=== PATIENT | male | born 1955 | race Caucasian/White ===

== ENCOUNTER 2021-10-02 08:24 | Day surgery (SDC) | payer MEDICAID ==
[~2021-10-02] VITALS: Ht 182.9 cm; Wt 85.0 kg
[2021-10-02 08:38] VITALS: BP 170/112
[2021-10-02] MEDS ORDERED: VITAMIN C PO (08:40)
[2021-10-02] MEDS ORDERED: CALCIUM PO (08:41)
[2021-10-02] MEDS ORDERED: MAGNESIUM PO (08:42)
[2021-10-02] MEDS ORDERED: fentaNYL/PF 50MCG/1 ML 2ML syringe ONE (08:46)
[2021-10-02] MEDS ORDERED: MIDAZolam 1 MG/ML 5ML VIAL ONE (08:46)
[2021-10-02 10:21] VITALS: BP 134/87
[2021-10-02 10:31] VITALS: BP 130/87
[2021-10-02 10:41] VITALS: BP 129/82
[2021-10-02 10:51] VITALS: BP 131/79
== END 2021-10-02 11:15 | disposition home or self-care (01) ==
LOC: GI LAB 08:24
PROVIDERS: ATTEND Internal Medicine Gastroenterology
DX: R19.5 Other fecal abnormalities (principal); D12.3 Benign neoplasm of transverse colon; D12.4 Benign neoplasm of descending colon; D12.8 Benign neoplasm of rectum; K57.30 Diverticulosis of large intestine without perforation or abscess without bleeding; K64.8 Other hemorrhoids; F17.290 Nicotine dependence, other tobacco product, uncomplicated; Z72.89 Other problems related to lifestyle
CPT/HCPCS: 45380; 45385; 99152; 99153; C1773; J2250; J3010; J7040; Z7512; A4620

== ENCOUNTER 2024-11-09 13:51 | Emergency (ER) | payer MEDICARE, MEDICAID ==
[~2024-11-09] VITALS: Ht 182.9 cm; Wt 91.2 kg
[~2024-11-09 13:51] MED LIST: CALCIUM PO; MAGNESIUM PO; VITAMIN C PO
--- NOTE | 2024-11-09 14:48 | Physician Documentation ---
History of Present Illness ~ Chief Complaint: Laceration Stated Complaint: HAND LAC Time Seen by MD: 13:59 OK to notify your PCP?: Yes Source: patient Mode of Arrival: POV Exam Limitations: no limitations HPI 69 y/o male with c/o laceration to right hand after a rope got caught around his hand when starting a generator about an hour ago. Last tetanus over 10years ago. No prearrival treatment. Able to move hand normally. Medication Reconciliation Allergies: Coded Allergies: pollen extracts (Unverified Allergy, Unknown, 10/02/21) Scheduled [Calcium], PO DAILY, (Reported) [Magnesium], PO DAILY, (Reported) [Vitamin C], PO DAILY, (Reported) Past Medical History Past Medical History: No Pertinent History Review of Systems All Other Systems at this time: Reviewed and Negative Physical Exam Vital Signs: Temperature: 98.0, Source: Temporal, Heart Rate: 91, Respiratory Rate: 16, BP: 145/95, Pulse Oximetry: 97, Weight: 91.200 Oxygen Flow Rate: 0 Physical Exam GENERAL: Alert, no acute distress. HEENT: NCAT, EOMI, PERRL, moist oral mucosa. NECK: Supple, trachea midline. CARDIAC: Regular rate and rhythm, no murmurs, rubs, or gallops. Equal distal pul ses. No lower extremity edema, cap refill less than 2 seconds. RESPIRATORY: Equal breath sounds, clear to auscultation bilaterally, no respiratory distress. MUSCULOSKELETAL: Right hand laceration measuring about 4 cm in length. No surrounding erythema. Normal range of motion, nontender, no swelling. Normal gait. NEUROLOGICAL: Awake, alert, and oriented x 3. SKIN: Warm/dry, no pallor, no rash. PSYCH: Alert and appropriate. Affect congruent with mood. Speech is clear. Good eye contact. Procedures Laceration/Wound Repair Laceration : Location: RIGHT HAND Length (cm): 6 Volume Anesthetic (mls): 10 Prep: irrigated by physician Irrigated w/ Saline (mls): 500 Debrided: minimal Undermining: none Margins: revised Foreign Body: not identified Repaired: skin Wound Repaired With: sutures Suture Size/Type: 4-0, ethilon Number of Superficial Sutures: 9 Dressing Applied: simple Splint Applied?: Yes Type of Splint Applied: velcro hand splint Tolerated Procedure Well?: yes, no complications Progress Results/Orders Reviewed/noted all lab results: Yes Results/Orders Orders - DRAKE DAVID Laceration/I&D Tray Set Up (11/09/24 14:14) Completed Orders - DRAKE DAVID Tetanus/Pertuss/Diph Acell/Pf (Boostrix (11/09/24 14:15) Lidocaine 1% W/Epi 1:100,000 (Xylocaine (11/09/24 14:15) Medications Received in ER Medications (Trade) Dose Ordered Sig/Radha Route PRN Reason Start Time Stop Time Status Last Admin Dose Admin (Boostrix vaccine syringe) 0.5 ml ONCE ONCE IMVAC 11/09/24 14:15 11/09/24 14:16 DC 11/09/24 14:53 0.5 ML Vital Signs 11/09/24 13:55 Temp 98.0 Pulse 91 Resp 16 B/P (MAP) 145/95 Pulse Ox 97 O2 Flow Rate 0 Medical Decision Making Differential Dx:Considerations: Include: Abrasion, Avulsion, Contusion, Laceration, Fracture, Hematoma, Neurovascular injury, Retained foreign body Departure Time of Disposition: 14:47 Disposition: 01 HOME / SELF CARE / HOMELESS Impression: Primary Impression: Laceration Condition: Stable Discharge Instructions: Laceration Care, Adult, [id number] Additional Instructions: DO NOT GET WET X 24HOURS SUTURES NEED TO BE REMOVED IN 7DAYS Referrals: NO PRIMARY CARE PROVIDER (PCP) Prescriptions Hydrocodone Bit/Acetaminophen 5/325 MG ([place] 5/325 MG) 5 Mg/325 Mg Tablet 1 TAB PO TID PRN PRN for pain for 5 Days, #15 TAB dx: hand laceration S61.419A Prov: DRAKE DAVID 11/09/24 Cephalexin*Monohydrate* (Keflex*) 500 Mg Capsule 1 CAP PO Q8H for 5 Days, #15 CAP Prov: DRAKE DAVID 11/09/24 Education Educated: Patient Educated regarding: diagnosis, treatment, need for follow up Signature Scribe Signature: X Attestation: DRAKE DEL RIO Nov 09, 2024 14:48
[2024-11-09] MEDS: TETanus/Pertussis (Acell)/Diphther VAC/PF (Tdap-Adult) 0.5ml syringe IMVAC ONE (14:53)
[2024-11-09] MEDS: LIDOcaine 1% W/epiNEPHrine 1:100,000 20ml vial IJ ONE (15:10)
[2024-11-09] MEDS ORDERED: HYDR-3965 PO (16:04)
[2024-11-09] MEDS ORDERED: CEPH-585 PO (16:04)
[2024-11-09 16:11] VITALS: BP 134/79; PULSE 67; RESP 16; TEMP 98; O2SAT 99
== END 2024-11-09 16:12 | disposition home or self-care (01) ==
LOC: ER 13:51
DX: S61.411A Laceration without foreign body of right hand, initial encounter (principal); Z91.048 Other nonmedicinal substance allergy status; Z79.899 Other long term (current) drug therapy; W22.8XXA Striking against or struck by other objects, initial encounter; Y93.89 Activity, other specified; Y92.89 Other specified places as the place of occurrence of the external cause; Y99.8 Other external cause status
CPT/HCPCS: 12002; 90715; 99283; A6258; A6402; A6449; G0008; J7030; L3908; Z7610; 90471

== ENCOUNTER 2024-11-19 10:18 | Emergency (ER) | payer MEDICARE, MEDICAID ==
[~2024-11-19] VITALS: Ht 182.9 cm; Wt 91.3 kg
[2024-11-19 10:31] VITALS: BP 155/94; PULSE 72; RESP 19; O2SAT 97
--- NOTE | 2024-11-19 10:34 | Physician Documentation ---
History of Present Illness ~ Chief Complaint: Suture Removal Stated Complaint: SUTURE REMOVAL Time Seen by MD: 10:33 [facility] 69-year-old male presents to the ED with a complaint of sutures in place for the last 10 days. He denies any increased pain swelling or discharge from his right hand where the sutures were placed Placed On: Nov 19, 2024 Tetanus Within 5 Years: Yes (11/2024) Medication Reconciliation Allergies: Coded Allergies: pollen extracts (Unverified Allergy, Unknown, 11/19/24) Scheduled [Calcium], PO DAILY, (Reported) [Magnesium], PO DAILY, (Reported) [Vitamin C], PO DAILY, (Reported) Discontinued Medications Cephalexin*Monohydrate* (Keflex*), 1 CAP PO Q8H Discontinued Reason: Auto Discontinued Hydrocodone Bit/Acetaminophen 5/325 MG ([place] 5/325 MG), 1 TAB PO TID PRN PRN for pain Discontinued Reason: Auto Discontinued Past Medical History Past Medical History: No Pertinent History Review of Systems All Other Systems at this time: Reviewed and Negative ROS As stated above in the HPI, otherwise all systems are reviewed and negative. Physical Exam Vital Signs: Temperature: 97.9, Source: Temporal, Heart Rate: 72, Respiratory Rate: 19, BP: 155/94, Pulse Oximetry: 97, Weight: 91.300 Physical Exam General: Alert, no apparent distress. HEENT: PERRL, EOMI, no injection, moist mucous membranes. Extremities: Normal range of motion, sutures inbetween 2nd and 3rd fingers erythema npo drainage Neurologic: Oriented x4. Psychiatric: Normal mood and affect. Skin: Normal color, warm and dry. No edema, no ecchymosis. Progress Results/Orders Results/Orders Vital Signs 11/19/24 10:31 Temp 97.9 Pulse 72 Resp 19 B/P (MAP) 155/94 Pulse Ox 97 Medical Decision Making Findings Sutures removed without difficulty. I am going to start patient on antibiotics to prevent any further infection Differential Dx:Considerations: Include: Cellulitis, Suture removal, Wound dehiscence, Other Departure Disposition: 01 HOME / SELF CARE / HOMELESS Impression: Primary Impression: Laceration Additional Impression: Wound cellulitis Discharge Instructions: Suture Removal, Care After Referrals: NO PRIMARY CARE PROVIDER (PCP) Prescriptions Doxycycline Monohydrate (Doxycycline Monohydrate) 100 Mg Capsule 1 CAP PO Q12H for 10 Days, #20 CAP Prov: JOSE G KLEIN NP 11/19/24 Signature Scribe Signature: g Attestation: Scribed for Jose G Klein [employer] Supervisor by Jose G Klein - YAN . 11/19/24 10:57 JOSE G KLEIN NP Nov 19, 2024 10:34
[2024-11-19] MEDS ORDERED: DOXY-460 PO (10:57)
[2024-11-19 11:04] VITALS: TEMP 97.9
== END 2024-11-19 11:06 | disposition home or self-care (01) ==
LOC: ER 10:18
DX: S61.411D Laceration without foreign body of right hand, subsequent encounter (principal); Z48.02 Encounter for removal of sutures; Z79.899 Other long term (current) drug therapy; Z91.048 Other nonmedicinal substance allergy status; X58.XXXD Exposure to other specified factors, subsequent encounter
CPT/HCPCS: 99283; A6258